=== PATIENT | female | born 1990 | race Caucasian/White ===

== ENCOUNTER 2022-12-07 12:50 | Emergency (ER) | payer OTHER, SELFPAY ==
[2022-12-07 13:31] VITALS: BP 126/85; PULSE 58; RESP 16; TEMP 36.7; O2SAT 98; BMI 26.4
--- NOTE | 2022-12-07 13:38 | XR_ITS ---
FINAL REPORT CLINICAL HISTORY: post c section constipation FINDINGS: A PA view of the chest was obtained. The mediastinum is unremarkable. The lungs are clear. There is no free air beneath the diaphragm. Upright and supine views of the abdomen reveal a nonspecific bowel gas pattern. No abnormal calcifications are identified. There is a moderate amount of retained stool throughout the colon. IMPRESSION: Moderate stool burden. Reviewed, Interpreted and Dictated by Jorge Alberto Benitez III, MD Transcribed by Norma Caldwell Authenticated and [facility]
--- NOTE | 2022-12-07 13:39 | HMH.EDGENADL ---
Discharge Plan Disposition Chief Complaint: Abdominal Pain Referrals Follow up/Referrals: Jorge Ahumada MD [Primary Care Provider] - See instructions Activity Restrictions/Add. Instructions Additional Instructions/Restrictions: At this time was felt you are safe to be discharged home. If new or worsening symptoms please do not hesitate to return to the emergency department. Please go to local pharmacy and obtain MiraLAX and/or magnesium citrate and follow their directions as instructed. Clinical Impressions Clinical Impression: Constipation Instructions Patient Instructions: DI for Acute Abdominal Pain Discharge ED Provider: Avel Wynn General Adult HPI General Chief complaint: Abdominal Pain Stated complaint: Possible constipation, post labor 12/02 Time Seen by Provider: 12/07/22 13:30 Mode of Arrival: Ambulatory Source of Information: Patient Limitations: No Limitations Description of Symptoms (Recalled from ER Triage Doc. by RN): pt is 5 days post . pt states that she has not had a bm for two days. she feels pressure in her rectum like she has to have a bm, but she is unable to find relief. History of Present Illness HPI narrative: Patient is a 32-year-old female , 5 days who presents emergency department for evaluation of constipation. Patient had at 39 weeks without complication, has had 2 bowel movement since Monday, normally has 2 bowel movements a day. Patient was discharged with oxycodone for pain control, has had routine vaginal bleeding status post . Due to constipation refractory to docusate 3 times yesterday she presents here for continued evaluation. No other acute complaints at this time [facility] Disclaimer: The information contained in this section may have been updated after the patient was seen, as this information can be updated by other users. Social History Smoking Status: Never smoker alcohol intake: never current occupational status: unemployed Travel in the last 8 weeks: None ROS Obtained: Yes Systems reviewed as appropriate & no additional complaints except as documented Physical Exam General General appearance: alert and in no apparent distress Head Head exam: atraumatic and normocephalic Eye Eye exam: Present PERRL and EOMI ENT ENT exam: Present mucous membranes moist Neck Neck exam: Present normal inspection Chest Chest inspection: Present normal inspection and symmetric chest wall rise Respiratory Respiratory exam: Absent respiratory distress Cardiovascular Cardiovascular exam: Present normal rhythm and bradycardia Abdominal Exam Abdominal exam: Present soft and distention; Absent tenderness Comment: Well approximated low transverse scar, no active bleeding or purulence Extremities Exam Extremities exam: Present normal inspection Neurological Exam Neurological exam: Present alert and oriented X3 Psychiatric Psychiatric exam: Present normal affect Skin Skin exam: Present warm and dry Medical Decision Making Rashi Inquiry Pt receiving controlled substance: No Vital Signs: 12/07/22 13:31 Temperature 98.1 F Temperature Source Oral Pulse Rate [Left] 58 L Respiratory Rate 16 Blood Pressure [Right Arm] 126/85 Blood Pressure Mean [Right Arm] 98 02 Sat by Pulse Oximetry 98 Orders (Tests/Meds): ORDERS Category Date Time Status Acute abdomen XR series [XR acute abdomen series] Stat Exams 12/07/22 13:38 Taken Medical Decision Narrative: In summary patient is a 32-year-old female with past medical history described above presents emergency department for evaluation of constipation in the setting of recent 5 days ago on opiates for pain control. Patient is hemodynamically stable nontoxic-appearing upon arrival, afebrile, nontender abdomen, wound well approximated. Differential includes opiate-induced constipation, among others. Limited work-up will be conducted
[2022-12-07 15:26] VITALS: BP 119/87; PULSE 87; RESP 20; TEMP 36.7; O2SAT 99
== END 2022-12-07 15:26 | disposition home or self-care (01) ==
PROVIDERS: Emergency Provider Emergency Medicine; PCP Pediatrics
DX: O99.63 Diseases of the digestive system complicating the puerperium (principal); K59.00 Constipation, unspecified
CPT/HCPCS: 74021; 99283